=== PATIENT | male | born 1945 | race Caucasian/White ===

== ENCOUNTER 2020-10-02 10:43 | Day surgery (SDC) | payer MEDICARE, BC ==
[~2020-10-02] VITALS: Ht 172.7 cm; Wt 103.9 kg
[~2020-10-02 10:43] MED LIST: CYCL10 PO; DUTA.5 PO; OXYACE5T PO
[2020-10-02] MEDS ORDERED: TAMS.4ER PO (11:17)
[2020-10-02] MEDS ORDERED: ELIQUIS5 MG PO (11:18)
--- NOTE | 2020-10-02 12:40 | NUR ---
10/02/20 1240 Carol Sanches V AT 1219 TIMEOUT WAS COMPLETED AND INTRASCALENE BLOCK PERFORMED BY DR. VILLARREAL. PT WAS MONITORED VIA PULS OX. PT TOLERATED PROCEDURE WELL.
--- NOTE | 2020-10-02 13:07 | NUR ---
10/02/20 1307 Antonio Muñiz CASE ABORTED, PRIOR TO INTUBATION, BY DR. VILLARREAL D/T UNCONTROLLED AFIB.
== END 2020-10-02 14:00 | disposition home or self-care (01) ==
LOC: ORSCSDS 10:43
DX: S46.002A Unspecified injury of muscle(s) and tendon(s) of the rotator cuff of left shoulder, initial encounter (principal); M75.22 Bicipital tendinitis, left shoulder; M75.42 Impingement syndrome of left shoulder; M19.012 Primary osteoarthritis, left shoulder; Z53.8 Procedure and treatment not carried out for other reasons; I48.91 Unspecified atrial fibrillation; I95.9 Hypotension, unspecified; F17.210 Nicotine dependence, cigarettes, uncomplicated; M79.7 Fibromyalgia; G47.33 Obstructive sleep apnea (adult) (pediatric); J44.9 Chronic obstructive pulmonary disease, unspecified; N40.0 Benign prostatic hyperplasia without lower urinary tract symptoms; Z20.822 Contact with and (suspected) exposure to COVID-19
CPT/HCPCS: J0171; J0690; J2250; J2370; J2704; J3010; J7120

== ENCOUNTER 2025-08-15 11:22 | Day surgery (SDC) | payer MEDICARE, BC ==
[~2025-08-15] VITALS: Ht 172.7 cm; Wt 102.8 kg
[~2025-08-15 11:22] MED LIST changes: +ELIQUIS5 MG PO; +NS 500 ML IV ONE; +TAMS.4ER PO
[2025-08-15] MEDS ORDERED: MELATONIN10 M2 (12:20)
[2025-08-15] MEDS ORDERED: TEMA30 (12:20)
[2025-08-15] MEDS ORDERED: TERA5 (12:20)
[2025-08-15] MEDS ORDERED: MELO7.5 PO (12:21)
[2025-08-15] MEDS ORDERED: NS 500 ML IV ONE (12:45)
[2025-08-15] MEDS ORDERED: CeFAZolin Sodium 2,000 MG VIAL ONE (12:48)
[2025-08-15 13:58] VITALS: BP 101/71
== END 2025-08-15 13:55 | disposition home or self-care (01) ==
LOC: ORSCSDS 11:22
DX: G56.03 Carpal tunnel syndrome, bilateral upper limbs (principal); I48.91 Unspecified atrial fibrillation; N40.0 Benign prostatic hyperplasia without lower urinary tract symptoms; J44.9 Chronic obstructive pulmonary disease, unspecified; G47.33 Obstructive sleep apnea (adult) (pediatric); F32.A Depression, unspecified; K21.9 Gastro-esophageal reflux disease without esophagitis; I10 Essential (primary) hypertension; E66.9 Obesity, unspecified; Z68.34 Body mass index [BMI] 34.0-34.9, adult; Z79.899 Other long term (current) drug therapy; Z87.891 Personal history of nicotine dependence
CPT/HCPCS: 88304; 88313; J0690; J2704; J7040